=== PATIENT | male | born 1955 | race Caucasian/White ===

== ENCOUNTER 2017-08-09 20:32 | Inpatient (IN) | payer OTHER ==
[~2017-08-09] VITALS: Ht 170.2 cm; Wt 142.0 kg
[~2017-08-09 20:32] MED LIST: ATORVASTATIN CA40 MG PO; CARDIZEM CD,CA240 MG PO; CINNAMON500 MG PO; FENOFIBRATE160 M1 PO; FISH OIL 1,0001 EA10 PO; FISH OIL 1,0001 EAC7 PO; FISH OIL 1,2001 EAC4 PO; GLIPIZIDE10 MG PO; GLUCOPHAGE1000 MG PO; HUMULIN 70100 UNIT/3 SC; LISINOPRIL10 MG PO; LO-DOSE ASPIRIN81 M1 PO; LOPRESSOR100 M1 PO; LOPRESSOR25 MG PO; METFORMIN HCL1000 MG PO; METOPROLOL TART25 MG PO; OXYCODONE HCL5 MG PO; PROTONIX40 MG PO; TORSEMIDE20 MG PO; XARELTO20 MG PO; ZESTORETIC 20-1 EAC1 NG; ZESTORETIC 20-1 EAC1 PO
[2017-08-09 21:24] LABS: HEMATOCRIT 42.6 % (38.0-50.0); HEMOGLOBIN 14.2 G/DL (12.5-16.6); MCH 27.4 PG (29.0-34.0); MCHC 33.3 G/DL (30.0-36.0); MCV 82.2 FL (86-99); PLATELET COUNT 192 K/uL (156-360); RBC DIS.WIDTH-CV 16.2 % (11.8-14.6); RBC DIS.WIDTH-SD 48.4 % (39-53); RED BLOOD COUNT 5.18 M/uL (4.00-5.50); WHITE BLOOD COUNT 13.5 K/uL (4.1-10.2)
[2017-08-09 21:36] LABS: ALBUMIN 3.6 g/dL (3.2-4.8); CHLORIDE 102 mEq/L (99-109); POTASSIUM 4.2 mEq/L (3.7-5.4); SODIUM 135 mEq/L (136-147)
[2017-08-09 21:39] LABS: GLUCOSE 84 mg/dL (70-99)
[2017-08-09 21:41] LABS: TOTAL BILIRUBIN 1.8 mg/dL (0.0-1.0)
[2017-08-09 21:42] LABS: ALKALINE PHOSPHATASE 73 IU/L (3-129); CREATININE 2.5 mg/dL (0.6-1.3); GFR ESTIMATE (CALCULATED) 28 mL/min/ (58.99-99999)
[2017-08-09 21:43] LABS: UREA NITROGEN (BUN) 47 mg/dL (9-23)
[2017-08-09 21:44] LABS: AST (GOT) 20 IU/L (2-34)
[2017-08-09 21:45] LABS: ALT (GPT) 16 IU/L (3-49)
[2017-08-09 21:46] LABS: LIPASE 36 U/L (1.0-51.0)
[2017-08-10 00:05] LABS: APPEARANCE CLEAR ((CLEAR)); BILIRUBIN NEGATIVE; BLOOD SMALL; COLOR YELLOW ((YELLOW)); GLUCOSE (STRIP) NEGATIVE; KETONES NEGATIVE; LEUKOCYTES NEGATIVE; NITRITE NEGATIVE; PROTEIN (STRIP) 100; SPECIFIC GRAVITY 1.014 (1.000-1.030); UROBILINOGEN 0.2 MG/DL (0.2-1.0)
[2017-08-10 00:18] LABS: BACTERIA RARE /HPF; EPITHELIAL CELLS RARE /HPF; HYALINE CASTS 20-30 /LPF; MUCUS TRACE /LPF; RED BLOOD CELLS 0-5 /HPF (0-5); UCUL ADDED? NO; WHITE BLOOD CELLS 0-5 /HPF (0-5)
[2017-08-10] MEDS ORDERED: JANUVIA25 M1 PO (00:34)
[2017-08-10] MEDS ORDERED: PROAIR HFA8.5 GM IH (00:34)
[2017-08-10] MEDS ORDERED: ERGOCALCIF50000 UNIT PO (00:34)
[2017-08-10 10:04] LABS: BASOPHIL (%) 0.7 % (0-1); BASOPHIL COUNT 0.1 K/uL (0-0.1); EOSINOPHIL (%) 0.1 % (0-5); HEMATOCRIT 39.7 % (38.0-50.0); IMMATURE GRANULOCYTE (%) 0.6 % (0.0-0.7); LYMPHOCYTE (%) 9.7 % (15-42); LYMPHOCYTE COUNT 0.9 K/uL (1.0-2.8); MCHC 32.7 G/DL (30.0-36.0); MCV 82.4 FL (86-99); MONOCYTE (%) 6.3 % (3-12); MONOCYTE COUNT 0.6 K/uL (0-0.8); NEUTROPHIL (%) 82.6 % (45-76); NEUTROPHIL COUNT 7.3 K/uL (1.8-6.4); PLATELET COUNT 159 K/uL (156-360); RBC DIS.WIDTH-CV 16.6 % (11.8-14.6); RBC DIS.WIDTH-SD 49.3 % (39-53); RED BLOOD COUNT 4.82 M/uL (4.00-5.50); WHITE BLOOD COUNT 8.9 K/uL (4.1-10.2)
[2017-08-10 10:18] LABS: ALBUMIN 3.1 g/dL (3.2-4.8); CHLORIDE 102 mEq/L (99-109); POTASSIUM 3.8 mEq/L (3.7-5.4); SODIUM 135 mEq/L (136-147)
[2017-08-10 10:21] LABS: GLUCOSE 119 mg/dL (70-99); TOTAL PROTEIN 6.9 g/dL (6.4-8.3)
[2017-08-10 10:24] LABS: ALKALINE PHOSPHATASE 63 IU/L (3-129); CREATININE 2.2 mg/dL (0.6-1.3); GFR ESTIMATE (CALCULATED) 33 mL/min/ (58.99-99999)
[2017-08-10 10:25] LABS: UREA NITROGEN (BUN) 46 mg/dL (9-23)
[2017-08-10 10:26] LABS: AST (GOT) 21 IU/L (2-34); DIRECT BILIRUBIN 1.1 mg/dL (0.0-0.3); TOTAL BILIRUBIN 1.3 mg/dL (0.0-1.0)
[2017-08-10 10:27] LABS: ALT (GPT) 15 IU/L (3-49)
[2017-08-10 15:00] VITALS: BP 114/75
[2017-08-10 19:30] VITALS: BP 124/84
[2017-08-11] VITALS: BP 131/84
[2017-08-11 06:44] LABS: BASOPHIL (%) 0.7 % (0-1); BASOPHIL COUNT 0.1 K/uL (0-0.1); EOSINOPHIL (%) 1.9 % (0-5); EOSINOPHIL COUNT 0.1 K/uL (0-0.3); HEMATOCRIT 40.7 % (38.0-50.0); HEMOGLOBIN 12.8 G/DL (12.5-16.6); IMMATURE GRANULOCYTE (%) 0.7 % (0.0-0.7); LYMPHOCYTE (%) 12.1 % (15-42); LYMPHOCYTE COUNT 0.9 K/uL (1.0-2.8); MCH 26.1 PG (29.0-34.0); MCHC 31.4 G/DL (30.0-36.0); MCV 83.1 FL (86-99); MONOCYTE (%) 8.2 % (3-12); MONOCYTE COUNT 0.6 K/uL (0-0.8); NEUTROPHIL (%) 76.4 % (45-76); NEUTROPHIL COUNT 5.6 K/uL (1.8-6.4); PLATELET COUNT 161 K/uL (156-360); RBC DIS.WIDTH-CV 16.5 % (11.8-14.6); WHITE BLOOD COUNT 7.3 K/uL (4.1-10.2)
[2017-08-11 07:25] LABS: ALBUMIN 2.8 G/DL (3.2-4.8); ALKALINE PHOSPHATASE 52 IU/L (3-129); ALT (GPT) 13 IU/L (3-49); AST (GOT) 18 IU/L (2-34); CHLORIDE 101 MEQ/L (99-109); CREATININE 2.2 MG/DL (0.6-1.3); DIRECT BILIRUBIN 0.6 mg/dL (0.0-0.3); GFR ESTIMATE (CALCULATED) 33 mL/min/ (58.99-99999); SODIUM 137 MEQ/L (136-147); TOTAL PROTEIN 6.3 G/DL (6.4-8.3); UREA NITROGEN (BUN) 49 mg/dL (9-23)
[2017-08-11 07:26] LABS: GLUCOSE 63 mg/dL (70-99)
[2017-08-11 07:27] LABS: HIGH-SENS C-REACTIVE PROTEIN > 8.00 MG/DL (0.02-0.20)
[2017-08-11 07:40] VITALS: BP 115/73
[2017-08-11 15:30] VITALS: BP 110/75
[2017-08-11 17:05] LABS: C DIFF TOXIN NEGATIVE (NEGATIVE)
[2017-08-11 19:34] VITALS: BP 126/76
[2017-08-12] VITALS (7 sets, daily range): BP systolic 103–133; BP diastolic 63–84
[2017-08-12 12:50] LABS: CREATININE 2.3 MG/DL (0.6-1.3)
[2017-08-12 12:52] LABS: VANCOMYCIN, TROUGH 9.6 MCG/ML (10-20)
[2017-08-13 04:00] VITALS: BP 142/82
[2017-08-13 07:15] VITALS: BP 124/78
[2017-08-13 07:32] LABS: CREATININE 2.3 MG/DL (0.6-1.3)
[2017-08-13 15:35] VITALS: BP 136/82
[2017-08-13 23:57] VITALS: BP 128/73
[2017-08-14 06:41] LABS: HEMATOCRIT 40.8 % (38.0-50.0); HEMOGLOBIN 13.1 G/DL (12.5-16.6); MCH 26.5 PG (29.0-34.0); MCHC 32.1 G/DL (30.0-36.0); MCV 82.6 FL (86-99); PLATELET COUNT 192 K/uL (156-360); RBC DIS.WIDTH-CV 16.3 % (11.8-14.6); RBC DIS.WIDTH-SD 48.6 % (39-53); RED BLOOD COUNT 4.94 M/uL (4.00-5.50); WHITE BLOOD COUNT 9.8 K/uL (4.1-10.2)
[2017-08-14 07:08] LABS: ALBUMIN 3.1 G/DL (3.2-4.8); ALKALINE PHOSPHATASE 79 IU/L (3-129); ALT (GPT) 9 IU/L (3-49); AST (GOT) 12 IU/L (2-34); CHLORIDE 100 MEQ/L (99-109); GFR ESTIMATE (CALCULATED) 36 mL/min/ (58.99-99999); GLUCOSE 112 mg/dL (70-99); POTASSIUM 4.4 MEQ/L (3.7-5.4); SODIUM 136 MEQ/L (136-147); TOTAL BILIRUBIN 0.8 MG/DL (0.0-1.0); TOTAL PROTEIN 6.4 G/DL (6.4-8.3); UREA NITROGEN (BUN) 60 mg/dL (9-23)
[2017-08-14 07:10] VITALS: BP 129/85
[2017-08-14 15:20] VITALS: BP 118/72
[2017-08-14 20:36] VITALS: BP 112/73
[2017-08-14 23:48] VITALS: BP 110/70
[2017-08-15] MEDS ORDERED: CEFTRIAXONE2 G1 IV (05:14)
[2017-08-15 07:15] VITALS: BP 121/80
== END 2017-08-15 13:40 | disposition home or self-care (01) | DRG 872 ==
LOC: EME 20:32 → 5EAST 08-10 01:32 → EDOF 08-10 01:32 → ENRESERV 08-10 01:34 → 5EAST 08-10 14:49 → ENPENDDIS 08-15 → 5EAST 08-15 13:40
PROVIDERS: Emergency Medicine; Hospitalist; Internal Medicine; Physician Assistant Medical
DX: A41.9 Sepsis, unspecified organism (principal); L03.116 Cellulitis of left lower limb; N17.9 Acute kidney failure, unspecified; E11.22 Type 2 diabetes mellitus with diabetic chronic kidney disease; E11.649 Type 2 diabetes mellitus with hypoglycemia without coma; I12.9 Hypertensive chronic kidney disease with stage 1 through stage 4 chronic kidney disease, or unspecified chronic kidney disease; N18.3 Chronic kidney disease, stage 3 (moderate); E66.01 Morbid (severe) obesity due to excess calories; L97.911 Non-pressure chronic ulcer of unspecified part of right lower leg limited to breakdown of skin; L97.921 Non-pressure chronic ulcer of unspecified part of left lower leg limited to breakdown of skin; Z95.1 Presence of aortocoronary bypass graft; Z95.0 Presence of cardiac pacemaker; Z87.891 Personal history of nicotine dependence; Z95.3 Presence of xenogenic heart valve; E78.5 Hyperlipidemia, unspecified; I25.10 Atherosclerotic heart disease of native coronary artery without angina pectoris; S00.522A Blister (nonthermal) of oral cavity, initial encounter; B95.61 Methicillin susceptible Staphylococcus aureus infection as the cause of diseases classified elsewhere; I83.018 Varicose veins of right lower extremity with ulcer other part of lower leg; I83.028 Varicose veins of left lower extremity with ulcer other part of lower leg; I48.2 Chronic atrial fibrillation; Z79.01 Long term (current) use of anticoagulants; E78.00 Pure hypercholesterolemia, unspecified; I35.0 Nonrheumatic aortic (valve) stenosis; J44.9 Chronic obstructive pulmonary disease, unspecified; Z79.4 Long term (current) use of insulin; Z68.42 Body mass index [BMI] 45.0-49.9, adult
CPT/HCPCS: 71046; 74176; 76705; 80048; 80053; 80076; 80202; 81003; 82248; 82565; 82948; 83605; 83690; 85025; 85027; 86141; 87040; 87070; 87075; 87076; 87077; 87147; 87185; 87186; 87205; 87493; 93306; 99202; 99281; 99285; A6212; A6260; J0690; J0696; J0744; J1815; J2405; J3370; J7030; S0030